=== PATIENT | female | born 1990 | race Hispanic/Latino ===

== ENCOUNTER 2018-10-31 21:06 | Observation (INO) | payer OTHER ==
[2018-10-31] MEDS ORDERED: methylPREDNISolone 125 MG in Sodium Chloride 0.9% 50 ML IV STA (22:27)
[2018-10-31] MEDS ORDERED: DiphenhydrAMINE 50 mg/ml Inj IVP STA (22:28)
--- NOTE | 2018-10-31 22:34 | ED PDOC ---
HPI: Skin/Bite Injury Time Seen by Provider: 10/31/18 22:03 Chief Complaint (Nursing): Abnormal Skin Integrity Chief Complaint (Provider): rash History Per: Patient History/Exam Limitations: no limitations Additional Complaint(s): 28 y/o F with hx of ADD and anxiety/depression who presents with worsening redness of left arm. Pt states that 2 days ago had hives on left arm that spread to legs and abdomen. It was itchy so she began to scratch and then it began to blister. She developed redness so she went to urgent care today. At the urgent care, the blisters were scrubbed with hydrogen peroxide and cleaned with Mup irocin antibiotic ointment. She was given a dose of Doxycycline, had redness marked and was advised to go to ER if redness passed the lines made on her skin. Since then, redness has progressed and she now feels that her left arm is swollen. Denies eating new foods or medications, numbness, fever, chills, night sweats. She took a Benadryl earlier today with no effect. Past Medical History Reviewed: Historical Data, Nursing Documentation, Vital Signs Vital Signs: Last Vital Signs Temp 98.9 F 10/31/18 22:14 Pulse 88 10/31/18 22:14 Resp 18 10/31/18 22:14 BP 120/85 10/31/18 22:14 Pulse Ox 98 10/31/18 22:14 - Medical History PMH: Anxiety, Depression (ADD) - Surgical History Surgical History: No Surg Hx - Family History Family History: States: Unknown Family Hx - Allergies Allergies/Adverse Reactions: Allergies Allergy/AdvReac Type Severity Reaction Status Date / Time No Known Allergies Allergy Verified 10/31/18 22:14 Review of Systems Constitutional: Negative for: Fever, Chills Gastrointestinal: Negative for: Nausea, Vomiting Physical Exam - Reviewed Nursing Documentation Reviewed: Yes Vital Signs Reviewed: Yes - Physical Exam Appears: Positive for: Non-toxic Skin: Positive for: Rash (left anterior forearm with abrasion with associated redness tracking up arm to past elbow medially with increased warmth and swelling, 2nd abrasion superior to that with associated erythema and increased warmth. abrasion to lower mid abdomen with mild associated erythema. Right lower lateral leg with abrasion and mild associated erythema, Right lateral knee with abrasion and mild associated erythema. No purulent drainage noted from any wounds) ENT: Positive for: Normal ENT Inspection Pulses-Radial (L): 1+ Extremity: Positive for: Normal ROM (flexion and extension of left wrist and all 5 digits.), Capillary Refill (< 2sec) Neurological/Psych: Positive for: Awake, Alert, Oriented - Laboratory Results Result Diagrams: 10/31/18 22:49 10/31/18 22:49 - ECG O2 Sat by Pulse Oximetry: 98 Medical Decision Making Medical Decision Making: CBC, BMP, blood cultures Urine preg Solu-Medrol 125mg IV x 1 Benadryl 50mg IV x 1 23:30: re-assessed (30min into Solu-Medrol). Patient feels that symptoms are unchanged and that redness may have progressed further. Left forearm erythema extending into left palmar aspect of hand. No change in swelling. Labs unremarkable. Zosyn 3.375G IV x 1 ordered. 23:40: Patient endorsed to MARIKA Marshall pending re-evaluation. Disposition - Clinical Impression Clinical Impression: Cellulitis - Patient ED Disposition Is Patient to be Admitted: Transfer of Care (Marika Marshall) Counseled Patient/Family Regarding: Studies Performed, Diagnosis, Need For Followup - Disposition Disposition: Transfer of Care Disposition Time: 23:46 Condition: FAIR Forms: [employer] (Vietnamese)
[2018-10-31 22:59] LABS: BASO % 0.2 % (0.0-2.0); EOS # 0.1 K/uL (0.0-0.7); EOS % 1.4 % (0.0-4.0); HEMOGLOBIN 12.8 g/dL (12.0-16.0); LYMPH # 1.5 K/uL (1.0-4.3); LYMPH % 14.2 % (20.0-40.0); MEAN CELL VOLUME 87.4 fl (81.0-99.0); MEAN CORPUSCULAR HEMOGLOBIN 28.7 pg (27.0-31.0); MEAN CORPUSCULAR HGB CONC 32.9 g/dL (33.0-37.0); MEAN PLATELET VOLUME 7.1 fl (7.2-11.7); MONO # 0.7 K/uL (0.0-0.8); MONO % 6.9 % (0.0-10.0); NEUT # 7.9 K/uL (1.8-7.0); NEUT % 77.3 % (50.0-75.0); RBC 4.46 Mil/uL (3.80-5.20); RED CELL DISTRIBUTION WIDTH 13.2 % (11.5-14.5); WHITE BLOOD COUNT 10.2 K/uL (4.8-10.8)
[2018-10-31 23:08] LABS: BLOOD UREA NITROGEN 11 mg/dl (7-17); CALCIUM 9.9 mg/dL (8.4-10.2); GFR NON-AFRICAN AMERICAN > 60
[2018-10-31] MEDS ORDERED: Piperacillin/Tazobact 3.375 gm Inj IVPB STA (23:39)
[2018-10-31] MEDS ORDERED: Piperacillin/Tazobact 3.375 GM in Sodium Chloride 0.9% 100 ML IVPB STA (23:43)
[2018-10-31] MEDS ORDERED: Piperacillin/Tazobact 3.375 gm Inj IVPB ONE (23:46)
--- NOTE | 2018-11-01 01:49 | ED PDOC ---
- Laboratory Results Result Diagrams: 10/31/18 22:49 10/31/18 22:49 - ECG O2 Sat by Pulse Oximetry: 99 - Progress ED Course And Treament: Case endorsed to insurance underwriter from [employer] pending re-eval after IV Zosyn, IV solumedrol, IV bendaryl 2:00 Patient resting comfortably; reports redness/itching/"tightness" in left forearm still the same. Redness expanding outside marked areas from today's Urgent Care visit; has not receded since PO Doxycycline dose at 18:00 and IV zosyn dose at 23:[address] Pulido, will admit for observation for subsequent IV antibiotics Dr. Pulido discussed case with Dr. Patton, medical service on-call <Liliam Marshall - Last Filed: 11/01/18 02:25> - Laboratory Results Result Diagrams: 10/31/18 22:49 10/31/18 22:49 <Angelito Pulido - Last Filed: 11/04/18 10:47> Disposition - POA Present On Arrival: None - Disposition Disposition: Hospitalized as Observation Patient Disposition Time: 02:00 <Liliam Marshall - Last Filed: 11/01/18 02:25> <Angelito Pulido - Last Filed: 11/04/18 10:47> - Clinical Impression Clinical Impression: Cellulitis - Disposition Condition: FAIR
--- NOTE | 2018-11-01 09:19 | CP.PCM.HP ---
History of Present Illness - History of Present Illness History of Present Illness: 28 YR OLD FEMALE ADMITTED WITH CELLULITIS OF L ARM AND BLISTERS OF SKIN .THE PT WAS SEEN AT AN URGICENTER,TREATED AND D/ANJU BUT REDNESS,WARMTH AND SWELLING OF L ARM WORSENED HX OF ANXIETY/DEPRESSION AND URTICARIA Present on Admission - Present on Admission Any Indicators Present on Admission: No Past Patient History - Past Medical History & Family History Past Medical History?: Yes - Past Social History Smoking Status: [facility] - CARDIAC Hx Cardiac Disorders: No - PULMONARY Hx Respiratory Disorders: Yes Hx Respiratory Tract Infection: Yes - NEUROLOGICAL Hx Neurological Disorder: No - HEENT Hx HEENT Problems: No - RENAL Hx Chronic Kidney Disease: No - HEMATOLOGICAL/ONCOLOGICAL Hx Blood Disorders: No - INTEGUMENTARY Hx Dermatological Problems: Yes Hx Workman: Yes - MUSCULOSKELETAL/RHEUMATOLOGICAL Hx Musculoskeletal Disorders: No Hx Falls: No - GASTROINTESTINAL Hx Gastrointestinal Disorders: No - GENITOURINARY/GYNECOLOGICAL Hx Genitourinary Disorders: No - PSYCHIATRIC Hx Psychophysiologic Disorder: Yes Hx Anxiety: Yes Hx Depression: Yes (ADD) Hx Substance Use: Yes (maurijuana and cocaine use) - SURGICAL HISTORY Hx Surgeries: Yes Other/Comment: -oral surgery. -IUD - ANESTHESIA Hx Anesthesia: Yes Hx Anesthesia Reactions: No Hx Malignant Hyperthermia: No Meds Allergies/Adverse Reactions: Allergies Allergy/AdvReac Type Severity Reaction Status Date / Time No Known Allergies Allergy Verified 10/31/18 22:14 Physical Exam - Constitutional Appears: Well - Head Exam Head Exam: ATRAUMATIC, NORMAL INSPECTION, NORMOCEPHALIC - Eye Exam Eye Exam: EOMI, Normal appearance, PERRL Pupil Exam: NORMAL ACCOMODATION, PERRL - ENT Exam ENT Exam: Mucous Membranes Moist, Normal Exam - Neck Exam Neck exam: Positive for: Normal Inspection - Respiratory Exam Respiratory Exam: Clear to Auscultation Bilateral, NORMAL BREATHING PATTERN - Cardiovascular Exam Cardiovascular Exam: REGULAR RHYTHM - GI/Abdominal Exam GI & Abdominal Exam: Normal Bowel Sounds, Soft. absent: Tenderness - Rectal Exam Rectal Exam: NORMAL INSPECTION - Extremities Exam Extremities exam: Positive for: tenderness - Back Exam Back exam: NORMAL INSPECTION - Neurological Exam Neurological exam: Alert, CN II-XII Intact, Normal Gait, Oriented x3, Reflexes Normal - Psychiatric Exam Psychiatric exam: Normal Affect, Normal Mood - Skin Skin Exam: Dry, Rash, Warm Additional comments: REDNESS OF L ARM Results - Vital Signs Recent Vital Signs: Last Vital Signs Temp 97.9 F 11/01/18 08:18 Pulse 76 11/01/18 08:18 Resp 18 11/01/18 08:18 BP 100/61 11/01/18 08:18 Pulse Ox 96 11/01/18 08:18 - Labs Result Diagrams: 10/31/18 22:49 10/31/18 22:49 Labs: Laboratory Results - last 24 hr 10/31/18 10/31/18 22:49 22:49 WBC 10.2 RBC 4.46 Hgb 12.8 Hct 39.0 MCV 87.4 MCH 28.7 MCHC 32.9 L RDW 13.2 Plt Count 268 MPV 7.1 L Neut % (Auto) 77.3 H Lymph % (Auto) 14.2 L Posey % (Auto) 6.9 Eos % (Auto) 1.4 Baso % (Auto) 0.2 Neut # (Auto) 7.9 H Lymph # (Auto) 1.5 [place] # (Auto) 0.7 Eos # (Auto) 0.1 Baso # (Auto) 0.0 Sodium 138 Potassium 4.1 Chloride 101 Carbon Dioxide 25 Anion Gap 16 BUN 11 Creatinine 0.6 L Est GFR ( Amer) > 60 Est GFR (Non-Af Amer) > 60 Random Glucose 91 Calcium 9.9 Assessment & Plan - Assessment and Plan (Free Text) Assessment: CELLUL;ITIS OF L ARM SKIN RASH HX OF ANXIETY/DEPRESSION Plan: ID CONSULT IV ANTIBIOTICS AND STEROIDS SEPTIC WORKUP - Date & Time Date: 11/01/18 Time: 09:22
[2018-11-01] MEDS ORDERED: methylPREDNISolone 40 MG in Sodium Chloride 0.9% 50 ML IVPB SCH (09:30)
[2018-11-01] MEDS ORDERED: Piperacillin/Tazobact 3.375 GM in Sodium Chloride 0.9% 100 ML IVPB SCH (10:15)
[2018-11-01] MEDS ORDERED: AMPHETAMINE PO SCH (10:15)
[2018-11-01] MEDS ORDERED: DEXTROAMPHETAMINE PO SCH (10:15)
[2018-11-01] MEDS: MethylPREDNISolone 40 mg Vial IVP SCH (10:19)
--- NOTE | 2018-11-01 11:04 | CP.PCM.CON ---
History of Present Illness - History of Present Illness History of Present Illness: Infectious disease consultation note Asked to see this patient at the request of Dr. Patton for left arm cellulitis. Patient is a 28-year-old female with no past medical history other than anxiety/depression who presented to the ED for complaints of worsening left arm redness swelling and itching. Patient explains that she has been getting hives on her right ankle and right lower extremity along with left arm left elbow region for the past few days and she went to's given some medications but her symptoms did not improve and the region on her left elbow became more swollen and more red and so she decided to come into the ER to be further evaluated and treated. Patient states that she has been having on and off hives and blisterlike lesions on different parts of her body for the past 3 weeks on and off. She denies any contact with animals other than 1 of her friends that has a dog but she denies any scratches or any bites by this dog she denies any recent travel she denies any sick contacts. She denies any new medications or any new food. Patient states the only new thing for her is that she started to eat more turmeric and she has started to use any foundry manager as well. she denies any fever or chills, denies any nausea or vomiting, denies any abd. pain, denies any diarrhea, denies any dysurea. denies any gardening or exposure to plants or bushes. she states the lesions are very itchy. she states the swelling and redness on her left arm has decreased since admission here but she still has a lot of itching. she states 2 weeks ago she had similar itchy lesions on her lower abd, right ankle and lower leg and left arm but they resolved. Review of Systems - Review of Systems Review of Systems: ROS- as stated in HPI Past Patient History - Past Medical History & Family History Past Medical History?: Yes - Past Social History Smoking Status: [facility] Home Situation {Lives}: Roommate - CARDIAC Hx Cardiac Disorders: No - PULMONARY Hx Respiratory Disorders: Yes Hx Respiratory Tract Infection: Yes - NEUROLOGICAL Hx Neurological Disorder: No - HEENT Hx HEENT Problems: No - RENAL Hx Chronic Kidney Disease: No - HEMATOLOGICAL/ONCOLOGICAL Hx Blood Disorders: No - INTEGUMENTARY Hx Dermatological Problems: Yes Hx Workman: Yes - MUSCULOSKELETAL/RHEUMATOLOGICAL Hx Musculoskeletal Disorders: No Hx Falls: No - GASTROINTESTINAL Hx Gastrointestinal Disorders: No - GENITOURINARY/GYNECOLOGICAL Hx Genitourinary Disorders: No - PSYCHIATRIC Hx Psychophysiologic Disorder: Yes Hx Anxiety: Yes Hx Depression: Yes (ADD) Hx Substance Use: Yes (maurijuana and cocaine use) - SURGICAL HISTORY Hx Surgeries: Yes Other/Comment: -oral surgery. -IUD - ANESTHESIA Hx Anesthesia: Yes Hx Anesthesia Reactions: No Hx Malignant Hyperthermia: No Meds Allergies/Adverse Reactions: Allergies Allergy/AdvReac Type Severity Reaction Status Date / Time No Known Allergies Allergy Verified 10/31/18 22:14 - Medications Medications: Current Medications Escitalopram Oxalate (Lexapro) 20 mg PO DAILY [facility] Last Admin: 11/01/18 10:19 Dose: 20 mg Home Med (Dextroamphetamine/Amphetamine [Adderall Xr 15 Mg Capsule]) 1 cap PO DAILY [facility] Piperacillin Sod/Tazobactam (Sod 3.375 gm/ Sodium Chloride) 100 mls @ 100 mls/hr IVPB Q6 [facility]; Protocol Methylprednisolone (Solu-Medrol) 40 mg IVP DAILY [facility] Last Admin: 11/01/18 10:19 Dose: 40 mg Physical Exam - Constitutional Appears: Non-toxic, No Acute Distress - Head Exam Head Exam: ATRAUMATIC - Eye Exam Eye Exam: EOMI, PERRL - ENT Exam ENT Exam: Normal Oropharynx - Neck Exam Neck exam: Positive for: Full Rom - Respiratory Exam Respiratory Exam: Clear to Auscultation Bilateral, NORMAL BREATHING PATTERN - Cardiovascular Exam Cardiovascular Exam: RRR, +S1, +S2 - GI/Abdominal Exam GI & Abdominal Exam: Normal Bowel Sounds, Soft Additional comments: NT, ND - Back Exam Additional comments: no aruna b/l LE - Neurological Exam Neurological exam: Alert, Oriented x3 - Skin Additional comments: multiple small round bite like desir with round surrounding erythematous regions on left forearm region with surrounding edema but seems like the surrounding erythema has resolved ( as per timbo and the previous penmark in palce). pt. has similar lesions on her right ankle and lower leg region but without any surrounding edema or erythema she also has simialr lesions on her mid lower abdomen x 3 no discharge from the lesions very pruritic, however no lesions on palms or soles Results - Vital Signs Recent Vital Signs: Last Vital Signs Temp 97.9 F 11/01/18 08:18 Pulse 76 03/15/19 08:18 Resp 18 11/01/18 08:18 BP 100/61 11/01/18 08:18 Pulse Ox 96 11/01/18 08:18 - Labs Result Diagrams: 10/31/18 22:49 10/31/18 22:49 Labs: Laboratory Results - last 24 hr 10/31/18 10/31/18 22:49 22:49 WBC 10.2 RBC 4.46 Hgb 12.8 Hct 39.0 MCV 87.4 MCH 28.7 MCHC 32.9 L RDW 13.2 Plt Count 268 MPV 7.1 L Neut % (Auto) 77.3 H Lymph % (Auto) 14.2 L [place] % (Auto) 6.9 Eos % (Auto) 1.4 Baso % (Auto) 0.2 Neut # (Auto) 7.9 H Lymph # (Auto) 1.5 [place] # (Auto) 0.7 Eos # (Auto) 0.1 Baso # (Auto) 0.0 Sodium 138 Potassium 4.1 Chloride 101 Carbon Dioxide 25 Anion Gap 16 BUN 11 Creatinine 0.6 L Est GFR ( Amer) > 60 Est GFR (Non-Af Amer) > 60 Random Glucose 91 Calcium 9.9 Laboratory Results - last 72 hr 10/31/18 10/31/18 22:49 22:49 WBC 10.2 RBC 4.46 Hgb 12.8 Hct 39.0 MCV 87.4 MCH 28.7 MCHC 32.9 L RDW 13.2 Plt Count 268 MPV 7.1 L Neut % (Auto) 77.3 H Lymph % (Auto) 14.2 L [place] % (Auto) 6.9 Eos % (Auto) 1.4 Baso % (Auto) 0.2 Neut # (Auto) 7.9 H Lymph # (Auto) 1.5 [place] # (Auto) 0.7 Eos # (Auto) 0.1 Baso # (Auto) 0.0 Sodium 138 Potassium 4.1 Chloride 101 Carbon Dioxide 25 Anion Gap 16 BUN 11 Creatinine 0.6 L Est GFR ( Amer) > 60 Est GFR (Non-Af Amer) > 60 Random Glucose 91 Calcium 9.9 Assessment & Plan (1) Rash and nonspecific skin eruption Status: Acute (2) Cellulitis Status: Acute - Assessment and Plan (Free Text) Assessment: A/P- 28 year old female with nonspecific erythematous lesions on left forearm and right ankle and lower leg and lower abd region perhpas from insect bite. no fever normal wbc does not look infectious in etiology. pt. could have developed local cellulitis from scratching the lesions . most likely allergic reaction to either something that she is coming in contact with . advised to perhaps change her foundry manager and to use hypoallergenic detergents and soaps . advised to get both food and environmental allergy panel. advised to d/c zosyn. check blood cx. check ESR. advised to palce on iV vanco to cover for skin mir while inpatient but after can be switched to empiric oral staph coverage for few days. advise steroid to help with pruritis and benadryl ointment for topical use PRN itching.\ All labs and chart notes reviewed. all above d/w patient and she verbalizes full understanding of all above and agrees with above plan of care. Thank you for allowing me to take part in the care of this patient.
[2018-11-01] MEDS ORDERED: Diphenhydramine 1% CREAM TOP PRN (14:40)
[2018-11-01] MEDS: Diphenhydramine 1% CREAM TOP SCH ×2 (17:13→20:29)
[2018-11-01] MEDS: buPROPion SR 150 MG TABLET PO SCH (20:22)
[2018-11-02 00:35] VITALS: PULSE 77
[2018-11-02 08:02] VITALS: BP 95/60; RESP 20; TEMP 97.8; O2SAT 98
[2018-11-02] MEDS: MethylPREDNISolone 40 mg Vial IVP SCH ×2 (08:48→08:55)
[2018-11-02] MEDS: Diphenhydramine 1% CREAM TOP SCH (08:49)
[2018-11-02] MEDS: buPROPion SR 150 MG TABLET PO SCH (08:49)
--- NOTE | 2018-11-02 10:50 | CP.PCM.DIS ---
Provider - Provider Date of Admission: 11/01/18 02:27 Attending physician: Rob Patton MD Consults: 11/01/18 09:12 Infectious Disease Consult Routine Comment: Consulting Provider: Napoleon Coleman Consulting Physician: Napoleon Coleman Reason for Consult: cellulitis Time Spent in preparation of Discharge (in minutes): 30 Diagnosis - Discharge Diagnosis (1) Cellulitis Status: Acute (2) Rash and nonspecific skin eruption Status: Acute Hospital Course - Lab Results Lab Results: Micro Results 10/31/18 22:49 Blood-Venous Blood Culture - Preliminary NO GROWTH AFTER 24 HOURS 11/01/18 18:07 Arm - Left Gram Stain - Final Most Recent Lab Values WBC 10.2 K/uL (4.8-10.8) 10/31/18 22:49 RBC 4.46 Mil/uL (3.80-5.20) 10/31/18 22:49 Hgb 12.8 g/dL (12.0-16.0) 10/31/18 22:49 Hct 39.0 % (34.0-47.0) 10/31/18 22:49 MCV 87.4 fl (81.0-99.0) 10/31/18 22:49 MCH 28.7 pg (27.0-31.0) 10/31/18 22:49 MCHC 32.9 g/dL (33.0-37.0) L 10/31/18 22:49 RDW 13.2 % (11.5-14.5) 10/31/18 22:49 Plt Count 268 K/uL (130-400) 10/31/18 22:49 MPV 7.1 fl (7.2-11.7) L 10/31/18 22:49 Neut % (Auto) 77.3 % (50.0-75.0) H 10/31/18 22:49 Lymph % (Auto) 14.2 % (20.0-40.0) L 10/31/18 22:49 [place] % (Auto) 6.9 % (0.0-10.0) 10/31/18 22:49 Eos % (Auto) 1.4 % (0.0-4.0) 10/31/18 22:49 Baso % (Auto) 0.2 % (0.0-2.0) 10/31/18 22:49 Neut # (Auto) 7.9 K/uL (1.8-7.0) H 10/31/18 22:49 Lymph # (Auto) 1.5 K/uL (1.0-4.3) 10/31/18 22:49 [place] # (Auto) 0.7 K/uL (0.0-0.8) 10/31/18 22:49 Eos # (Auto) 0.1 K/uL (0.0-0.7) 10/31/18 22:49 Baso # (Auto) 0.0 K/uL (0.0-0.2) 10/31/18 22:49 ESR 12 mm/hr (0-20) 11/01/18 17:30 Sodium 138 mmol/l (132-148) 10/31/18 22:49 Potassium 4.1 MMOL/L (3.6-5.0) 10/31/18 22:49 Chloride 101 mmol/L (98-107) 10/31/18 22:49 Carbon Dioxide 25 mmol/L (22-30) 10/31/18 22:49 Anion Gap 16 (10-20) 10/31/18 22:49 BUN 11 mg/dl (7-17) 10/31/18 22:49 Creatinine 0.6 mg/dl (0.7-1.2) L 10/31/18 22:49 Est GFR ( Amer) > 60 10/31/18 22:49 Est GFR (Non-Af Amer) > 60 10/31/18 22:49 Random Glucose 91 mg/dL (65-105) 10/31/18 22:49 Calcium 9.9 mg/dL (8.4-10.2) 10/31/18 22:49 - Hospital Course Hospital Course: SKIN RASH AND CELLULITIS IMPROVED Discharge Exam - Head Exam Head Exam: ATRAUMATIC - Eye Exam Eye Exam: EOMI, Normal appearance, PERRL Pupil Exam: NORMAL ACCOMODATION, PERRL - GI/Abdominal Exam GI & Abdominal Exam: Normal Bowel Sounds - Rectal Exam Rectal Exam: NORMAL INSPECTION - Neurological Exam Neurological exam: Alert, CN II-XII Intact, Normal Gait, Oriented x3, Reflexes Normal - Psychiatric Exam Psychiatric exam: Normal Affect, Normal Mood - Skin Skin Exam: Dry, Intact, Normal Color, Rash, Warm Discharge Plan - Follow Up Plan Condition: FAIR Disposition: HOME/ ROUTINE Instructions: Cellulitis (DC) Additional Instructions: follow up with primary md 1 week Referrals: Rob Patton MD [Staff Provider] -
[2018-11-04 14:56] LABS: D.FARINAE (D2) IGE <0.10 kU/L (<0.10); OAK (T7) IGE <0.10 kU/L (<0.10)
== END 2018-11-02 13:12 | disposition home or self-care (01) ==
LOC: H.ER 21:06 → H.ERHOLD 11-01 02:27 → H.MEDSURG1 11-01 05:51
PROVIDERS: ADMIT Internal Medicine Pulmonary Disease; ATTEND Internal Medicine Pulmonary Disease
DX: L03.114 Cellulitis of left upper limb (principal); L29.9 Pruritus, unspecified; F14.90 Cocaine use, unspecified, uncomplicated; F32.9 Major depressive disorder, single episode, unspecified; F41.9 Anxiety disorder, unspecified; R21 Rash and other nonspecific skin eruption
CPT/HCPCS: 36415; 80048; 81025; 82785; 85025; 85651; 86003; 87040; 87070; 96374; 99284; G0378; J1200; J2543; J2920; J2930